=== PATIENT | male | born 1955 | race Caucasian/White ===

== ENCOUNTER 2024-10-20 12:43 | Inpatient (IN) | payer MEDICARE ==
[~2024-10-20] VITALS: Ht 182.9 cm; Wt 83.9 kg
[2024-10-20] VITALS (7 sets, daily range): BP systolic 95–140; BP diastolic 52–77; PULSE 73–90; RESP 18–22; TEMP 97.3–98.3; O2SAT 95–99
[2024-10-20] MEDS ORDERED: GENTAMICIN 80MG/NS 100 ML 200 ML IV ONE (12:54)
[2024-10-20] MEDS ORDERED: CEFEPIME HCL 1 GM VIAL ONE (12:54)
[2024-10-20] MEDS ORDERED: SODIUM CHLORIDE 0.9% 1000ML 1,000 ML ONE ×3 (12:54→16:34)
[2024-10-20] MEDS ORDERED: TADALAFIL10 MG PO (13:09)
[2024-10-20] MEDS ORDERED: XIGDUO XR 5 MG1 EAC1 PO (13:09)
[2024-10-20] MEDS ORDERED: FLOMAX0.4 MG PO (13:09)
[2024-10-20] MEDS ORDERED: ROSUVASTATIN CA20 MG PO (13:09)
[2024-10-20 13:43] LABS: BASOPHILS % 0.6 % (0.0-1.0); EOSINOPHILS # (AUTO) 0.2 (0.0-0.4); EOSINOPHILS % 2.2 % (0.0-6.0); HEMATOCRIT 44.3 % (38.2-49.6); HEMOGLOBIN 15.4 g/dL (14.0-18.0); LYMPHOCYTES # (AUTO) 1.2 (1.0-3.2); LYMPHOCYTES % 17.9 % (18.0-39.1); MEAN CORPUSCULAR HEMOGLOBIN 31.3 pg (28-32); MEAN CORPUSCULAR HGB CONC 34.8 g/dL (31-35); MONOCYTES # (AUTO) 0.7 (0.2-0.8); MONOCYTES % 9.4 % (4.4-11.3); NEUTROPHILS # (AUTO) 4.8 (2.1-6.9); NEUTROPHILS % 69.8 % (38.7-80.0); PLATELET COUNT 228 x10e3/uL (140-360); RED BLOOD COUNT 4.92 x10e6/uL (4.3-5.7); RED CELL DISTRIBUTION WIDTH 12.7 % (11.7-14.4); WHITE BLOOD COUNT 6.91 x10e3/uL (4.8-10.8)
[2024-10-20 14:06] LABS: ANION GAP 15.8 mmol/L (8-16); CALCIUM 9.1 mg/dL (8.4-10.2); CREATININE, SERUM 0.88 mg/dL (0.72-1.25); POTASSIUM 3.8 mmol/L (3.5-5.1)
[2024-10-20] MEDS ORDERED: SEVOFLURANE INHAL SOLN 250 ML PEN BTL ONE (14:28)
[2024-10-20] MEDS ORDERED: LIDOCAINE HCL 2% LOCAL INJ 5 ML SDV VIAL INJ ONE (14:28)
[2024-10-20] MEDS ORDERED: PROPOFOL IV EMULSION 10 MG/ML 20 ML VIAL ONE (14:28)
[2024-10-20] MEDS ORDERED: FENTANYL CITRATE/PF 100MCG/2 ML INJ ONE ×3 (14:28→16:13)
[2024-10-20] MEDS ORDERED: ACETAMINOPHEN 1000 MG/100 ML 100 ML IV ONE (14:32)
[2024-10-20] MEDS ORDERED: ONDANSETRON HCL INJ 2MG/ML 2ML 2 MG/ML VIAL ONE (14:51)
[2024-10-20] MEDS ORDERED: DEXAMETHASONE SOD PHOS INJ 4 MG/ML SDV ONE (14:53)
[2024-10-20] MEDS ORDERED: EPHEDRINE SULFATE INJ 50 MG/ML VIAL ONE (15:47)
[2024-10-20] MEDS ORDERED: DIPHENHYDRAMINE HCL 25 MG CAP PO PRN (17:00)
[2024-10-20] MEDS ORDERED: ACETAMINOPHEN 1000 MG/100 ML IV PRN (17:00)
[2024-10-20] MEDS ORDERED: ONDANSETRON HCL INJ 2MG/ML 2ML 2 MG/ML VIAL IV PRN (17:00)
[2024-10-20] MEDS ORDERED: PHENAZOPYRIDINE HCL 100 MG TAB PO PRN (17:00)
[2024-10-20 17:03] LABS: BASOPHILS % 0.3 % (0.0-1.0); EOSINOPHILS # (AUTO) 0.1 (0.0-0.4); HEMATOCRIT 36.5 % (38.2-49.6); HEMOGLOBIN 12.5 g/dL (14.0-18.0); LYMPHOCYTES # (AUTO) 1.1 (1.0-3.2); LYMPHOCYTES % 8.5 % (18.0-39.1); MEAN CORPUSCULAR HEMOGLOBIN 31.4 pg (28-32); MEAN CORPUSCULAR HGB CONC 34.2 g/dL (31-35); MEAN CORPUSCULAR VOLUME 91.7 fL (81-99); MONOCYTES # (AUTO) 0.6 (0.2-0.8); MONOCYTES % 4.6 % (4.4-11.3); NEUTROPHILS # (AUTO) 10.6 (2.1-6.9); NEUTROPHILS % 85.2 % (38.7-80.0); PLATELET COUNT 194 x10e3/uL (140-360); RED BLOOD COUNT 3.98 x10e6/uL (4.3-5.7); RED CELL DISTRIBUTION WIDTH 12.8 % (11.7-14.4); WHITE BLOOD COUNT 12.48 x10e3/uL (4.8-10.8)
[2024-10-20 17:19] LABS: ANION GAP 11.6 mmol/L (8-16); CALCIUM 7.2 mg/dL (8.4-10.2); CREATININE, SERUM 0.78 mg/dL (0.72-1.25); POTASSIUM 3.6 mmol/L (3.5-5.1)
[2024-10-20] MEDS: SENNA-S TABLET PO SCH (17:54)
[2024-10-20] MEDS: SODIUM CHLORIDE 0.9% 1000ML 1,000 ML IV SCH (17:54)
[2024-10-21] VITALS (8 sets, daily range): BP systolic 76–102; BP diastolic 52–69; PULSE 72–81; RESP 17–20; TEMP 98.2–98.5; O2SAT 96–100
[2024-10-21] MEDS: ACETAMINOPHEN/CODEINE 300MG - 30MG TAB PO PRN (04:03)
[2024-10-21 05:33] LABS: BASOPHILS % 0.1 % (0.0-1.0); EOSINOPHILS % 0.1 % (0.0-6.0); HEMATOCRIT 33.9 % (38.2-49.6); HEMOGLOBIN 11.5 g/dL (14.0-18.0); LYMPHOCYTES # (AUTO) 0.7 (1.0-3.2); LYMPHOCYTES % 8.6 % (18.0-39.1); MEAN CORPUSCULAR HEMOGLOBIN 30.9 pg (28-32); MEAN CORPUSCULAR HGB CONC 33.9 g/dL (31-35); MEAN CORPUSCULAR VOLUME 91.1 fL (81-99); MONOCYTES # (AUTO) 0.7 (0.2-0.8); MONOCYTES % 9.5 % (4.4-11.3); NEUTROPHILS # (AUTO) 6.2 (2.1-6.9); NEUTROPHILS % 81.3 % (38.7-80.0); PLATELET COUNT 213 x10e3/uL (140-360); RED BLOOD COUNT 3.72 x10e6/uL (4.3-5.7)
[2024-10-21 06:16] LABS: ANION GAP 12.1 mmol/L (8-16); CALCIUM 7.3 mg/dL (8.4-10.2); CREATININE, SERUM 0.82 mg/dL (0.72-1.25); POTASSIUM 4.1 mmol/L (3.5-5.1)
[2024-10-21] MEDS ORDERED: DEXTROSE 50% SYRINGE 50 ML IV PRN (09:00)
[2024-10-21] MEDS: MAGNESIUM SULFATE 2GM/50ML 50 ML IV ONE (09:21)
[2024-10-21] MEDS: TAMSULOSIN HCL 0.4 MG CAP PO SCH (09:21)
[2024-10-21] MEDS: INSULIN LISPRO 100 UNIT/1 ML 3ML VIAL SQ SCH (09:31)
[2024-10-22] VITALS (12 sets, daily range): BP systolic 96–143; BP diastolic 51–89; PULSE 66–103; RESP 18–20; TEMP 98.2–99.4; O2SAT 94–100
[2024-10-22 06:40] LABS: BASOPHILS % 0.6 % (0.0-1.0); EOSINOPHILS # (AUTO) 0.1 (0.0-0.4); EOSINOPHILS % 2.1 % (0.0-6.0); HEMATOCRIT 30.2 % (38.2-49.6); HEMOGLOBIN 10.2 g/dL (14.0-18.0); LYMPHOCYTES # (AUTO) 1.3 (1.0-3.2); MEAN CORPUSCULAR HEMOGLOBIN 31.1 pg (28-32); MEAN CORPUSCULAR HGB CONC 33.8 g/dL (31-35); MEAN CORPUSCULAR VOLUME 92.1 fL (81-99); MONOCYTES # (AUTO) 0.6 (0.2-0.8); MONOCYTES % 10.5 % (4.4-11.3); NEUTROPHILS # (AUTO) 3.2 (2.1-6.9); NEUTROPHILS % 61.6 % (38.7-80.0); PLATELET COUNT 154 x10e3/uL (140-360); RED BLOOD COUNT 3.28 x10e6/uL (4.3-5.7); RED CELL DISTRIBUTION WIDTH 13.2 % (11.7-14.4); WHITE BLOOD COUNT 5.24 x10e3/uL (4.8-10.8)
[2024-10-22 06:58] LABS: ANION GAP 9.9 mmol/L (8-16); CALCIUM 7.6 mg/dL (8.4-10.2); CREATININE, SERUM 0.75 mg/dL (0.72-1.25); POTASSIUM 3.9 mmol/L (3.5-5.1)
[2024-10-22 07:16] LABS: MAGNESIUM 1.8 MG/DL (1.3-2.1); PHOSPHORUS 2.5 MG/DL (2.3-4.7)
[2024-10-23 04:01] VITALS: BP 116/49; PULSE 80; RESP 17; TEMP 98.9; O2SAT 95
[2024-10-23 06:14] VITALS: PULSE 72; RESP 22; O2SAT 98
[2024-10-23 06:38] LABS: BASOPHILS % 0.1 % (0.0-1.0); HEMATOCRIT 39.1 % (38.2-49.6); HEMOGLOBIN 12.1 g/dL (14.0-18.0); LYMPHOCYTES # (AUTO) 0.7 (1.0-3.2); LYMPHOCYTES % 4.9 % (18.0-39.1); MEAN CORPUSCULAR HEMOGLOBIN 26.9 pg (28-32); MEAN CORPUSCULAR HGB CONC 30.9 g/dL (31-35); MEAN CORPUSCULAR VOLUME 86.9 fL (81-99); MONOCYTES # (AUTO) 0.5 (0.2-0.8); MONOCYTES % 3.3 % (4.4-11.3); NEUTROPHILS # (AUTO) 13.6 (2.1-6.9); NEUTROPHILS % 91.1 % (38.7-80.0); PLATELET COUNT 290 x10e3/uL (140-360); RED CELL DISTRIBUTION WIDTH 13.9 % (11.7-14.4); WHITE BLOOD COUNT 14.97 x10e3/uL (4.8-10.8)
[2024-10-23 07:37] LABS: ANION GAP 13.8 mmol/L (8-16); CALCIUM 8.3 mg/dL (8.4-10.2); CREATININE, SERUM 0.82 mg/dL (0.72-1.25); POTASSIUM 3.8 mmol/L (3.5-5.1)
[2024-10-23 08:45] VITALS: BP 120/64; PULSE 91; RESP 18; TEMP 97.7; O2SAT 98
[2024-10-23 12:00] VITALS: BP 121/66; PULSE 85; RESP 18; TEMP 98; O2SAT 99
== END 2024-10-23 13:50 | disposition home or self-care (01) | DRG 713 ==
LOC: OR 12:43 → PACU V 15:17 → MED/SURG2 17:48
PROVIDERS: ADMIT Internal Medicine; ATTEND Internal Medicine
PROC: 0T7D8ZZ Dilation of Urethra, Via Natural or Artificial Opening Endoscopic (ICD-10-PCS; 2024-10-20)
PROC: BT141ZZ Fluoroscopy of Kidneys, Ureters and Bladder using Low Osmolar Contrast (ICD-10-PCS; 2024-10-20)
PROC: 0VB08ZZ Excision of Prostate, Via Natural or Artificial Opening Endoscopic (ICD-10-PCS; principal; 2024-10-20 14:43)
PROC: 0VB03ZX Excision of Prostate, Percutaneous Approach, Diagnostic (ICD-10-PCS; 2024-10-20 14:43)
DX: N40.1 Benign prostatic hyperplasia with lower urinary tract symptoms (principal); N13.8 Other obstructive and reflux uropathy; N39.0 Urinary tract infection, site not specified; N41.9 Inflammatory disease of prostate, unspecified; R39.14 Feeling of incomplete bladder emptying; R31.0 Gross hematuria; I10 Essential (primary) hypertension; E78.5 Hyperlipidemia, unspecified; E11.65 Type 2 diabetes mellitus with hyperglycemia; N35.912 Unspecified bulbous urethral stricture, male
CPT/HCPCS: 36415; 71046; 74420; 76872; 76998; 80048; 82948; 83036; 83735; 84100; 85025; 88305; 93005; 94799; C1758; J0692; J0696; J1100; J1580; J2003; J2405; J3475; J7030